=== PATIENT | female | born 1990 | race Caucasian/White ===

== ENCOUNTER 2024-05-05 14:18 | Observation (INO) | payer BC ==
[~2024-05-05 14:18] MED LIST: Iopamidol 300 61% 100 ML VIAL FS ONE
[2024-05-05] MEDS ORDERED: Ketorolac Tromethamine 30 MG (1 mL) VIAL ONE (15:10)
[2024-05-05] MEDS ORDERED: Morphine 4 MG/ML VIAL ONE ×2 (15:10→15:50)
[2024-05-05] MEDS ORDERED: Ondansetron PF 4 MG/2 ML Vial ONE ×2 (15:10→21:08)
[2024-05-05 15:11] LABS: #Basophils 0.03 10x3/uL (0.0-0.2); #Eosinophils 0.04 10x3/uL (0.0-0.5); #Monocytes 0.62 10x3/uL (0.0-1.1); #Neutrophils 10.28 10x3/uL (1.5-8.4); %Basophils 0.2 % (0.0-2.0); %Eosinophils 0.3 % (0.0-6.0); %Lymphocytes 17.9 % (18.0-47.0); %Monocytes 4.6 % (0.0-10.0); %Neutrophils 76.7 % (40.0-75.0); Hematocrit 41.5 % (34.9-44.5); Hemoglobin 14.5 g/dL (12.0-15.5); Mean Corpuscular HGB CONC 34.9 g/dL (32.0-36.0); Mean Corpuscular Hemoglobin 31.7 pg (27.0-33.0); Mean Corpuscular Volume 90.8 fL (81.6-98.3); Platelet Count 236 10x3/uL (150-450); RBC Distribution Width 11.4 % (11.5-14.5); Red Blood Cell (RBC) Count 4.57 10x6/uL (3.90-5.03); White Blood Cell (WBC) Count 13.4 10x3/uL (3.5-10.5)
[2024-05-05 15:26] LABS: ALT (SGPT) 16 U/L (8-55); AST (SGOT) 27 U/L (5-34); Albumin 3.8 g/dL (3.5-5.0); Alkaline Phosphatase 42 U/L (40-110); Anion Gap 12 mmol/L (10-20); BUN (Urea Nitrogen) 16 mg/dL (7.0-18.7); Bilirubin, Total 0.6 mg/dL (0.2-1.2); Calc. Creatinine Clearance 0 mL/min (70-130); Calcium 9.5 mg/dL (7.8-10.44); Carbon Dioxide 20 mmol/L (22-29); Chloride 107 mmol/L (98-107); Estimated GFR 84; Globulin 3.6 g/dL (2.4-3.5); Glucose 101 mg/dL (70-105); Lipase 14 U/L (8-78); Potassium 4.2 mmol/L (3.5-5.1); Protein, Total 7.4 g/dL (6.0-8.3); Sodium 135 mmol/L (136-145)
[2024-05-05 15:27] LABS: BHCG - Serum Negative (NEGATIVE); Pregs Control Background? CLEAR/WHITE (CLR/WHITE); Pregs Control Bar Appear? YES (CONTROL BAR)
[2024-05-05] MEDS ORDERED: fentaNYL 50 mcg/mL 1 mL Vial ONE ×4 (16:40→21:18)
[2024-05-05 18:12] LABS: Bilirubin Neg (Negative); Blood, Urine 150 (Negative); Clarity Slightly Cloudy (Clear); Glucose, Urine (Dipstick) Normal (Negative); Ketone, Urine 50 mg/dL (Negative); Leukocyte 500 (Negative); Nitrite Positive (Negative); Protein, Urine (Dipstick) 30 mg/dl (Neg-Trace); Urobilinogen Normal mg/dL (Less than 2)
[2024-05-05 18:19] LABS: CAUTI Indications for Culture Pelvic or flank pain; Squamous Epithelial 0-3 HPF (0-3); WBC/HPF 21-50 HPF (0-3)
[2024-05-05 18:20] LABS: Bacteria/HPF Rare-Few HPF (None Seen)
[2024-05-05 18:21] LABS: Urine Culture Reflex Yes Yes
[2024-05-05 20:04] LABS: Bilirubin Neg (Negative); Blood, Urine 150 (Negative); Clarity Slightly Cloudy (Clear); Glucose, Urine (Dipstick) Normal (Negative); Ketone, Urine 50 mg/dL (Negative); Leukocyte 500 (Negative); Nitrite Negative (Negative); Protein, Urine (Dipstick) 15 mg/dl (Neg-Trace); Urobilinogen Normal mg/dL (Less than 2)
[2024-05-05 20:14] LABS: CAUTI Indications for Culture Pelvic or flank pain; RBC/HPF 0-3 HPF (0-3)
[2024-05-05 20:15] LABS: Bacteria/HPF None Seen HPF (None Seen); Squamous Epithelial 0-3 HPF (0-3); Urine Culture Reflex No No
[2024-05-05] MEDS ORDERED: CEFAZOLIN 2 GM VIAL ONE (20:29)
[2024-05-05] MEDS ORDERED: Iopamidol 30 ML ONE (21:00)
[2024-05-05] MEDS ORDERED: Metoclopramide HCl 10 MG (2 mL) VIAL ONE (21:08)
[2024-05-05] MEDS ORDERED: PROPOFOL 20 ML ONE (21:08)
[2024-05-05] MEDS ORDERED: MINERAL OIL/WHITE PETROLATUM 3.5 GM TUBE ONE (21:40)
[2024-05-05] MEDS ORDERED: LevoFLOXacin D5W 500 mg (100 mL) BAG ONE (22:18)
[2024-05-05] MEDS ORDERED: Acetaminophen 650 MG Suppository PR PRN (22:29)
[2024-05-05] MEDS ORDERED: Ondansetron ODT 4 MG TAB PO PRN (22:29)
[2024-05-05] MEDS ORDERED: Ondansetron PF 4 MG/2 ML Vial IVP PRN (22:29)
[2024-05-05] MEDS ORDERED: Acetaminophen 325 MG TAB PO PRN (22:29)
[2024-05-05 22:55] VITALS: BMI 23.8
[2024-05-05] MEDS ORDERED: traMADol HCl 50 MG TAB PO PRN ×2 (23:45)
[2024-05-06] MEDS: Dextrose 5%-Lactated Ringers 1,000 ML IV SCH (00:19)
[2024-05-06 04:02] LABS: #Basophils 0.01 10x3/uL (0.0-0.2); #Monocytes 0.14 10x3/uL (0.0-1.1); #Neutrophils 9.81 10x3/uL (1.5-8.4); %Basophils 0.1 % (0.0-2.0); %Lymphocytes 6.9 % (18.0-47.0); %Monocytes 1.3 % (0.0-10.0); %Neutrophils 91.4 % (40.0-75.0); Hematocrit 36.6 % (34.9-44.5); Hemoglobin 12.7 g/dL (12.0-15.5); Mean Corpuscular HGB CONC 34.7 g/dL (32.0-36.0); Mean Corpuscular Hemoglobin 31.8 pg (27.0-33.0); Mean Corpuscular Volume 91.7 fL (81.6-98.3); Mean Platelet Volume 10.9 fL (7.4-10.4); Platelet Count 195 10x3/uL (150-450); RBC Distribution Width 11.2 % (11.5-14.5); Red Blood Cell (RBC) Count 3.99 10x6/uL (3.90-5.03); White Blood Cell (WBC) Count 10.7 10x3/uL (3.5-10.5)
[2024-05-06 04:28] LABS: Anion Gap 11 mmol/L (10-20); BUN (Urea Nitrogen) 8 mg/dL (7.0-18.7); Calc. Creatinine Clearance 95 mL/min (70-130); Calcium 8.4 mg/dL (7.8-10.44); Carbon Dioxide 17 mmol/L (22-29); Chloride 110 mmol/L (98-107); Estimated GFR 102; Glucose 171 mg/dL (70-105); Potassium 4.2 mmol/L (3.5-5.1); Sodium 134 mmol/L (136-145)
[2024-05-06 11:22] VITALS: BP 122/75; TEMP 98.6
[2024-05-06] MEDS ORDERED: LevoFLOXacin 750 mg/D5W 750 MG in Premix 1 BAG IVPB SCH (21:00)
== END 2024-05-06 12:59 | disposition home or self-care (01) ==
LOC: CSHERS 14:18 → CSHSDC/OP 21:21 → CSHTELE 22:55
PROVIDERS: ADMIT Urology; ATTEND Urology
PROC: 0T768DZ Dilation of Right Ureter with Intraluminal Device, Via Natural or Artificial Opening Endoscopic (ICD-10-PCS; principal; 2024-05-06)
DX: N20.0 Calculus of kidney (principal); N13.30 Unspecified hydronephrosis; N39.0 Urinary tract infection, site not specified; J45.909 Unspecified asthma, uncomplicated; Z79.899 Other long term (current) drug therapy
CPT/HCPCS: 36415; 51600; 51701; 74177; 74430; 80048; 80053; 81001; 83690; 84703; 85025; 87077; 87086; 87186; 96361; 96374; 96375; 96376; J1885; J1956; J2272; J2405; J2704; J2765; J3010; Q9967

== ENCOUNTER 2024-05-08 09:42 | Outpatient (CLI) | payer BC | END 2024-05-08 09:43 | disposition home or self-care (01) | LOC: CSHULT 09:42 | PROVIDERS: ATTEND Family Medicine | DX: R22.1 Localized swelling, mass and lump, neck (principal); E04.2 Nontoxic multinodular goiter | CPT/HCPCS: 76536 ==